=== PATIENT | male | born 1995 | race Caucasian/White ===

== ENCOUNTER 2018-07-27 02:56 | Emergency (ER) | payer OTHER ==
[~2018-07-27] VITALS: Ht 177.8 cm; Wt 79.4 kg
[2018-07-27 03:01] VITALS: Ht 177.8 cm; Wt 79.4 kg
[2018-07-27 03:34] LABS: BASOPHIL % 0.8 % (0-2); PLATELET COUNT 247 x10^3mcL (130-400); RED CELL DISTRIBUTION WIDTH 11.9 % (11.5-14.5)
[2018-07-27 03:47] LABS: CALCIUM 8.3 mg/dL (8.5-10.1); CARBON DIOXIDE 24.2 mmol/L (21-32); CHLORIDE SERUM 108 mmol/L (98-107); CREATININE SERUM 1.2 mg/dL (0.7-1.3); GFR1 > 60 mL/min; GLUCOSE SERUM 110 mg/dL (74-106); POTASSIUM SERUM 3.9 mmol/L (3.5-5.1); SODIUM SERUM 146 mmol/L (136-145)
[2018-07-27 03:51] LABS: ALBUMIN 4.5 g/dL (3.4-5.0); ALKALINE PHOSPHATASE 124 U/L (46-116); ALT/SGPT 20 U/L (16-63); AST/SGOT 22 U/L (15-37); BILIRUBIN TOTAL 0.31 mg/dL (0.20-1.00); TOTAL PROTEIN, SERUM 8.1 g/dL (6.4-8.2)
[2018-07-27 04:30] LABS: AMPHETAMINE QUAL UR NONE DETECTED (See below)
[2018-07-27 08:52] VITALS: BP 114/79
== END 2018-07-27 09:35 | disposition home or self-care (01) ==
LOC: ED 02:56
PROVIDERS: Emergency Medicine
DX: F32.9 Major depressive disorder, single episode, unspecified (principal); F10.129 Alcohol abuse with intoxication, unspecified
CPT/HCPCS: G0480; J7030

== ENCOUNTER 2020-01-14 11:58 | Inpatient (IN) | payer SELFPAY ==
[~2020-01-14] VITALS: Ht 177.8 cm; Wt 81.2 kg
[2020-01-14 12:20] VITALS: Ht 177.8 cm; Wt 81.2 kg
[2020-01-14 15:19] LABS: BASOPHIL % 0.2 % (0-2); PLATELET COUNT 204 x10^3mcL (130-400); RED CELL DISTRIBUTION WIDTH 13.5 % (11.5-14.5)
[2020-01-14 15:32] LABS: CALCIUM 8.4 mg/dL (8.5-10.1); CARBON DIOXIDE 29.9 mmol/L (21-32); CHLORIDE SERUM 103 mmol/L (98-107); GFR1 > 60 mL/min; GLUCOSE SERUM 89 mg/dL (74-106); POTASSIUM SERUM 4.1 mmol/L (3.5-5.1); SODIUM SERUM 140 mmol/L (136-145)
[2020-01-14 15:48] LABS: ALBUMIN 4.1 g/dL (3.4-5.0); ALKALINE PHOSPHATASE 79 U/L (46-116); ALT/SGPT 30 U/L (16-63); AST/SGOT 19 U/L (15-37); BILIRUBIN TOTAL 0.6 mg/dL (0.20-1.00); FREE T4 1.12 ng/dL (0.76-1.46); TOTAL PROTEIN, SERUM 7.4 g/dL (6.4-8.2)
[2020-01-14 17:02] LABS: MAGNESIUM 2.4 mg/dL (1.8-2.4)
[2020-01-14 17:12] LABS: CHOLESTEROL/HDL RATIO 2.4
[2020-01-14 17:48] LABS: AMPHETAMINE QUAL UR NONE DETECTED (See below)
[2020-01-14 19:09] VITALS: BP 112/61
[2020-01-14 21:00] VITALS: BP 114/50
[2020-01-15 03:34] LABS: microscopic required? NO
[2020-01-15 05:36] LABS: urine erythrocyte NEGATIVE (NEGATIVE)
[2020-01-15 06:18] VITALS: BP 112/63
[2020-01-15 06:42] LABS: BASOPHIL % 0.6 % (0-2); PLATELET COUNT 193 x10^3mcL (130-400); RED CELL DISTRIBUTION WIDTH 13.6 % (11.5-14.5)
[2020-01-15 07:53] LABS: CALCIUM 8.7 mg/dL (8.5-10.1); CHLORIDE SERUM 107 mmol/L (98-107); CREATININE SERUM 1.1 mg/dL (0.7-1.3); GFR1 > 60 mL/min; GLUCOSE SERUM 86 mg/dL (74-106); POTASSIUM SERUM 3.9 mmol/L (3.5-5.1); SODIUM SERUM 143 mmol/L (136-145)
[2020-01-15 08:00] VITALS: BP 90/46
[2020-01-15 12:15] VITALS: BP 106/49
[2020-01-15 16:50] VITALS: BP 106/49
== END 2020-01-15 19:47 | disposition home or self-care (01) | DRG 195 ==
LOC: ED 11:58 → DU 16:24
PROVIDERS: Emergency Medicine; ADMIT Internal Medicine
DX: R09.1 Pleurisy (principal); R06.00 Dyspnea, unspecified; Z68.25 Body mass index [BMI] 25.0-25.9, adult
CPT/HCPCS: 83880; 84439; 85378; G0378; J1650; J1885; Q0092; U0002